=== PATIENT | female | born 1995 | race African-American/Black ===

== ENCOUNTER 2017-11-07 15:17 | Emergency (ER) | payer SELFPAY ==
[~2017-11-07] VITALS: Ht 149.9 cm; Wt 104.1 kg
[~2017-11-07 15:17] MED LIST: Z.0.NO CURRENT MEDS
[2017-11-07 15:27] VITALS: BP 141/91; PULSE 110; RESP 16; TEMP 99.6; O2SAT 99
[2017-11-07 17:47] LABS: AUTOMATED NEUTROPHIL # 7.4 TH/MM3 (1.8-7.7); BASOPHIL % 0.3 % (0.0-2.0); EOSINOPHIL # 0.1 TH/MM3 (0-0.4); EOSINOPHIL % 1.1 % (0.0-4.0); HEMOGLOBIN 10.5 GM/DL (11.6-15.3); LYMPH % 21.8 % (9.0-44.0); LYMPHOCYTE # 2.2 TH/MM3 (1.0-4.8); MEAN CORPUSCULAR HEMOGLOBIN 22.5 PG (27.0-34.0); MEAN CORPUSCULAR HGB CONC 30.8 % (32.0-36.0); MEAN PLATELET VOLUME 8.2 FL (7.0-11.0); MONO % 3.8 % (0.0-8.0); MONOCYTE # 0.4 TH/MM3 (0-0.9); PLATELET COUNT 484 TH/MM3 (150-450); RED BLOOD COUNT 4.66 MIL/MM3 (4.00-5.30); RED CELL DISTRIBUTION WIDTH 20.3 % (11.6-17.2); WHITE BLOOD COUNT 10.1 TH/MM3 (4.0-11.0)
[2017-11-07 18:07] LABS: ALBUMIN 3.8 GM/DL (3.4-5.0); ALT (GPT) 17 U/L (9-42); AST (GOT) 15 U/L (16-38); BICARBONATE 27.8 MEQ/L (21.0-32.0); BLOOD UREA NITROGEN 6 MG/DL (7-18); CALCIUM 8.8 MG/DL (8.5-10.1); CHLORIDE 105 MEQ/L (98-107); CREATININE 0.69 MG/DL (0.50-1.00); GLOMERULAR FILTRATION RATE 131 ML/MIN (>89); GLUCOSE,RANDOM 77 MG/DL (74-106); SODIUM (NA) 141 MEQ/L (136-145)
[2017-11-07 18:12] LABS: ALKALINE PHOSPHATASE 92 U/L (45-117); TOTAL BILIRUBIN ADULT 0.2 MG/DL (0.2-1.0); TOTAL PROTEIN 8.6 GM/DL (6.4-8.2)
--- NOTE | 2017-11-07 18:26 | PD ---
HPI Chief Complaint: Psychiatric Symptoms Time Seen by Provider: 18:06 Travel History International Travel<30 days: No Contact w/Intl Traveler<30days: No Traveled to known affect area: No History of Present Illness HPI 22-year-old female presents to the emergency department under Horta act by her primary care provider. According to the Horta act report the patient has "suicidal plan for today" and states "new patient brought to my office by her mother. "After leaving her office I am going home to commit suicide by ingestion." On my examination the patient states that she has been thinking about suicide for the past few months. She has history of suicidal attempt a few years ago by taking a handful of her mother's painkillers. She states she ordered a bottle of Tylenol online and had a plan to take it when it arrived. It arrived a month ago and has been sitting in her room. Her mom is aware of the bottle of pills and the patient said she was going to give him to her mother , but her room is a mass and she cannot find them. She also lives with her sister. Denies homicidal ideations. Denies illicit drug use, alcohol use, tobacco use. Denies auditory visual hallucinations. Denies psychiatric history. Says her symptoms are aggravated by feeling depressed about life and not having anyone around and not having any friends. No known relieving factors. Symptoms are moderate to severe in severity. Duration chronic. Unknown onset. Says she has been having dysuria and nausea for the past few weeks. Otherwise denies fever, vomiting, abdominal pain, chest pain, shortness of breath, change in stool. Currently on her menses. Primary care provider is Dr. Pavon. Denies significant past medical history. No known allergies. Has no other medical complaints. No other modifying factors or associated signs and symptoms. PFSH Past Medical History Developmental Delay: No Diminished Hearing: No Immunizations Current: Yes Social History Alcohol Use: No Tobacco Use: No Substance Use: No Allergies-Medications (Allergen,Severity, Reaction): Coded Allergies: No Known Allergies (Verified Adverse Reaction, Unknown, 11/07/17) Reported Meds & Prescriptions Reported Meds & Active Scripts Active Review of Systems Except as stated in HPI: all other systems reviewed are Neg Physical Exam Narrative GENERAL: Well-nourished, well-developed black female patient, in no acute distress SKIN: Warm and dry. HEAD: Atraumatic. Normocephalic. EYES: Pupils equal and round. ENT: Mucosa pink and moist. NECK: Supple. Trachea midline. CARDIOVASCULAR: Regular rate and rhythm. No murmur appreciated. RESPIRATORY: No accessory muscle use. Clear to auscultation. Breath sounds equal bilaterally. GASTROINTESTINAL: Abdomen soft, non-tender, nondistended. Hepatic and splenic margins not palpable. Bowel sounds are active 4 quadrants. MUSCULOSKELETAL: No obvious deformities. No clubbing. No cyanosis. No edema. BACK: No CVA tenderness. NEUROLOGICAL: Awake and alert. Oriented 3. No obvious cranial nerve deficits. Motor grossly within normal limits. Normal speech. Moves all extremities. 5/5 strength to all extremities. PSYCHIATRIC: No delusional thought processes. No hallucinations. Data Data Last Documented VS Vital Signs Date Time Temp Pulse Resp B/P (MAP) Pulse Ox O2 Delivery O2 Flow Rate FiO2 11/07/17 15:27 99.6 110 16 141/91 (108) 99 Orders Orders Complete Blood Count With Diff (11/07/17 16:42) Comprehensive Metabolic Panel (11/07/17 16:42) Psych Screen (11/07/17 16:42) Drug Screen, Random Urine (11/07/17 16:42) Thyroid Stimulating Hormone (11/07/17 18:07) Urinalysis - C+S If Indicated (11/07/17 18:07) Ed Urine Pregnancytest Poc (11/07/17 18:07) Alcohol (Ethanol) (11/07/17 18:07) Salicylates (Aspirin) (11/07/17 18:07) Tylenol (Acetaminophen) (11/07/17 18:07) Labs Laboratory Tests Test 11/07/17 15:36 White Blood Count 10.1 TH/MM3 Red Blood Count 4.66 MIL/MM3 Hemoglobin 10.5 GM/DL Hematocrit 34.0 % Mean Corpuscular Volume 73.0 FL Mean Corpuscular Hemoglobin 22.5 PG Mean Corpuscular Hemoglobin Concent 30.8 % Red Cell Distribution Width 20.3 % Platelet Count 484 TH/MM3 Mean Platelet Volume 8.2 FL Neutrophils (%) (Auto) 73.0 % Lymphocytes (%) (Auto) 21.8 % Monocytes (%) (Auto) 3.8 % Eosinophils (%) (Auto) 1.1 % Basophils (%) (Auto) 0.3 % Neutrophils # (Auto) 7.4 TH/MM3 Lymphocytes # (Auto) 2.2 TH/MM3 Monocytes # (Auto) 0.4 TH/MM3 Eosinophils # (Auto) 0.1 TH/MM3 Basophils # (Auto) 0.0 TH/MM3 CBC Comment DIFF FINAL Differential Comment Blood Urea Nitrogen 6 MG/DL Creatinine 0.69 MG/DL Random Glucose 77 MG/DL Total Protein 8.6 GM/DL Albumin 3.8 GM/DL Calcium Level 8.8 MG/DL Alkaline Phosphatase 92 U/L Aspartate Amino Transf (AST/SGOT) 15 U/L Alanine Aminotransferase (ALT/SGPT) 17 U/L Total Bilirubin 0.2 MG/DL Sodium Level 141 MEQ/L Potassium Level 3.8 MEQ/L Chloride Level 105 MEQ/L Carbon Dioxide Level 27.8 MEQ/L Anion Gap 8 MEQ/L Estimat Glomerular Filtration Rate 131 ML/MIN Urine Opiates Screen NEG Urine Barbiturates Screen NEG Urine Amphetamines Screen NEG Urine Benzodiazepines Screen NEG Urine Cocaine Screen NEG Urine Cannabinoids Screen NEG MDM Medical Decision Making Medical Screen Exam Complete: Yes Emergency Medical Condition: Yes Medical Record Reviewed: Yes Differential Diagnosis Suicidal ideation, suicidal threat, depression, medical clearance for psychological evaluation Narrative Course Patient presents under a Horta act. Physical examination and vital signs are essentially unremarkable. Patient has no medical complaints to report. Psych screen has been ordered. If the laboratory results are unremarkable, the patient will be medically cleared for psychiatric evaluation and disposition. Diagnosis Primary Impression: Medical clearance for psychiatric admission Scripts No Active Prescriptions or Reported Meds Condition: Stable Kala Fuchs November 07, 2017 18:26
[2017-11-07 19:52] LABS: BILIRUBIN, URINE NEG (NEG); BLOOD, URINE MOD (NEG); GLUCOSE,URINE NEG (NEG); KETONE, URINE TRACE mg/dL (NEG); MUCUS URINE MANY /lpf (OCC); NITRITE,URINE NEG (NEG); SQUAMOUS EPITHELIAL CELL URINE 6 /hpf (0-5); URINE COLOR YELLOW (YELLW/STRAW); URINE LEUKOCYTE ESTERASE TRACE (NEG)
--- NOTE | 2017-11-07 20:19 | PD ---
Physical Exam Date Seen by Provider: November 07, 2017 Time Seen by Provider: 20:17 Data Data Last Documented VS Vital Signs Date Time Temp Pulse Resp B/P (MAP) Pulse Ox O2 Delivery O2 Flow Rate FiO2 11/07/17 15:27 99.6 110 16 141/91 (108) 99 Orders Orders Complete Blood Count With Diff (11/07/17 16:42) Comprehensive Metabolic Panel (11/07/17 16:42) Psych Screen (11/07/17 16:42) Drug Screen, Random Urine (11/07/17 16:42) Thyroid Stimulating Hormone (11/07/17 18:07) Urinalysis - C+S If Indicated (11/07/17 18:07) Ed Urine Pregnancytest Poc (11/07/17 18:07) Alcohol (Ethanol) (11/07/17 18:07) Salicylates (Aspirin) (11/07/17 18:07) Tylenol (Acetaminophen) (11/07/17 18:07) Urine Culture (11/07/17 19:17) Labs Laboratory Tests Test 11/07/17 15:36 11/07/17 19:17 White Blood Count 10.1 TH/MM3 Red Blood Count 4.66 MIL/MM3 Hemoglobin 10.5 GM/DL Hematocrit 34.0 % Mean Corpuscular Volume 73.0 FL Mean Corpuscular Hemoglobin 22.5 PG Mean Corpuscular Hemoglobin Concent 30.8 % Red Cell Distribution Width 20.3 % Platelet Count 484 TH/MM3 Mean Platelet Volume 8.2 FL Neutrophils (%) (Auto) 73.0 % Lymphocytes (%) (Auto) 21.8 % Monocytes (%) (Auto) 3.8 % Eosinophils (%) (Auto) 1.1 % Basophils (%) (Auto) 0.3 % Neutrophils # (Auto) 7.4 TH/MM3 Lymphocytes # (Auto) 2.2 TH/MM3 Monocytes # (Auto) 0.4 TH/MM3 Eosinophils # (Auto) 0.1 TH/MM3 Basophils # (Auto) 0.0 TH/MM3 CBC Comment DIFF FINAL Differential Comment Blood Urea Nitrogen 6 MG/DL Creatinine 0.69 MG/DL Random Glucose 77 MG/DL Total Protein 8.6 GM/DL Albumin 3.8 GM/DL Calcium Level 8.8 MG/DL Alkaline Phosphatase 92 U/L Aspartate Amino Transf (AST/SGOT) 15 U/L Alanine Aminotransferase (ALT/SGPT) 17 U/L Total Bilirubin 0.2 MG/DL Sodium Level 141 MEQ/L Potassium Level 3.8 MEQ/L Chloride Level 105 MEQ/L Carbon Dioxide Level 27.8 MEQ/L Anion Gap 8 MEQ/L Estimat Glomerular Filtration Rate 131 ML/MIN Urine Opiates Screen NEG Urine Barbiturates Screen NEG Urine Amphetamines Screen NEG Urine Benzodiazepines Screen NEG Urine Cocaine Screen NEG Urine Cannabinoids Screen NEG Urine Color YELLOW Urine Turbidity CLEAR Urine pH 6.0 Urine Specific [place] 1.033 Urine Protein 30 mg/dL Urine Glucose (UA) NEG mg/dL Urine Ketones TRACE mg/dL Urine Occult Blood MOD Urine Nitrite NEG Urine Bilirubin NEG Urine Urobilinogen LESS THAN 2.0 MG/DL Urine Leukocyte Esterase TRACE Urine RBC /hpf Urine WBC 91 /hpf Urine Squamous Epithelial Cells 6 /hpf Urine Mucus MANY /lpf Microscopic Urinalysis Comment CULTURE INDICATED MDM Medical Record Reviewed: Yes Supervised Visit with NAV: No Interpretation(s) Laboratory Tests Test 11/07/17 15:36 11/07/17 19:17 White Blood Count 10.1 TH/MM3 Red Blood Count 4.66 MIL/MM3 Hemoglobin 10.5 GM/DL Hematocrit 34.0 % Mean Corpuscular Volume 73.0 FL Mean Corpuscular Hemoglobin 22.5 PG Mean Corpuscular Hemoglobin Concent 30.8 % Red Cell Distribution Width 20.3 % Platelet Count 484 TH/MM3 Mean Platelet Volume 8.2 FL Neutrophils (%) (Auto) 73.0 % Lymphocytes (%) (Auto) 21.8 % Monocytes (%) (Auto) 3.8 % Eosinophils (%) (Auto) 1.1 % Basophils (%) (Auto) 0.3 % Neutrophils # (Auto) 7.4 TH/MM3 Lymphocytes # (Auto) 2.2 TH/MM3 Monocytes # (Auto) 0.4 TH/MM3 Eosinophils # (Auto) 0.1 TH/MM3 Basophils # (Auto) 0.0 TH/MM3 CBC Comment DIFF FINAL Differential Comment Blood Urea Nitrogen 6 MG/DL Creatinine 0.69 MG/DL Random Glucose 77 MG/DL Total Protein 8.6 GM/DL Albumin 3.8 GM/DL Calcium Level 8.8 MG/DL Alkaline Phosphatase 92 U/L Aspartate Amino Transf (AST/SGOT) 15 U/L Alanine Aminotransferase (ALT/SGPT) 17 U/L Total Bilirubin 0.2 MG/DL Sodium Level 141 MEQ/L Potassium Level 3.8 MEQ/L Chloride Level 105 MEQ/L Carbon Dioxide Level 27.8 MEQ/L Anion Gap 8 MEQ/L Estimat Glomerular Filtration Rate 131 ML/MIN Urine Opiates Screen NEG Urine Barbiturates Screen NEG Urine Amphetamines Screen NEG Urine Benzodiazepines Screen NEG Urine Cocaine Screen NEG Urine Cannabinoids Screen NEG Urine Color YELLOW Urine Turbidity CLEAR Urine pH 6.0 Urine Specific [place] 1.033 Urine Protein 30 mg/dL Urine Glucose (UA) NEG mg/dL Urine Ketones TRACE mg/dL Urine Occult Blood MOD Urine Nitrite NEG Urine Bilirubin NEG Urine Urobilinogen LESS THAN 2.0 MG/DL Urine Leukocyte Esterase TRACE Urine RBC /hpf Urine WBC 91 /hpf Urine Squamous Epithelial Cells 6 /hpf Urine Mucus MANY /lpf Microscopic Urinalysis Comment CULTURE INDICATED Differential Diagnosis . Narrative Course The patient's laboratory tests have been reviewed. She does have innumerable red blood cells and 91 WBCs in her urine but no obvious bacteria. She will be treated per her culture. The patient has been medically cleared for psychiatric admission. Diagnosis Primary Impression: Medical clearance for psychiatric admission Scripts No Active Prescriptions or Reported Meds Condition: Dae Mak November 07, 2017 20:19
[2017-11-08 00:05] VITALS: BP 109/51; PULSE 87; RESP 19; O2SAT 100
[2017-11-08 01:51] LABS: ACETAMINOPHEN LESS THAN 2.0 MCG/ML (10.0-30.0)
[2017-11-08 06:35] VITALS: BP 128/63; PULSE 84; RESP 17; O2SAT 99
--- NOTE | 2017-11-08 12:06 | PD ---
Physical Exam Date Seen by Provider: November 08, 2017 Time Seen by Provider: 12:55 Data Data Last Documented VS Vital Signs Date Time Temp Pulse Resp B/P (MAP) Pulse Ox O2 Delivery O2 Flow Rate FiO2 11/08/17 06:35 84 17 128/63 (84) 99 Room Air 11/07/17 15:27 99.6 Orders Orders Complete Blood Count With Diff (11/07/17 16:42) Comprehensive Metabolic Panel (11/07/17 16:42) Psych Screen (11/07/17 16:42) Drug Screen, Random Urine (11/07/17 16:42) Thyroid Stimulating Hormone (11/07/17 18:07) Urinalysis - C+S If Indicated (11/07/17 18:07) Ed Urine Pregnancytest Poc (11/07/17 18:07) Alcohol (Ethanol) (11/07/17 18:07) Salicylates (Aspirin) (11/07/17 18:07) Tylenol (Acetaminophen) (11/07/17 18:07) Urine Culture (11/07/17 19:17) Diet Regular Basic (11/08/17 Breakfast) Diet Regular Basic (11/08/17 Lunch) Ed Discharge Order (11/08/17 12:06) Labs Laboratory Tests Test 11/07/17 15:36 11/07/17 19:17 White Blood Count 10.1 TH/MM3 Red Blood Count 4.66 MIL/MM3 Hemoglobin 10.5 GM/DL Hematocrit 34.0 % Mean Corpuscular Volume 73.0 FL Mean Corpuscular Hemoglobin 22.5 PG Mean Corpuscular Hemoglobin Concent 30.8 % Red Cell Distribution Width 20.3 % Platelet Count 484 TH/MM3 Mean Platelet Volume 8.2 FL Neutrophils (%) (Auto) 73.0 % Lymphocytes (%) (Auto) 21.8 % Monocytes (%) (Auto) 3.8 % Eosinophils (%) (Auto) 1.1 % Basophils (%) (Auto) 0.3 % Neutrophils # (Auto) 7.4 TH/MM3 Lymphocytes # (Auto) 2.2 TH/MM3 Monocytes # (Auto) 0.4 TH/MM3 Eosinophils # (Auto) 0.1 TH/MM3 Basophils # (Auto) 0.0 TH/MM3 CBC Comment DIFF FINAL Differential Comment Blood Urea Nitrogen 6 MG/DL Creatinine 0.69 MG/DL Random Glucose 77 MG/DL Total Protein 8.6 GM/DL Albumin 3.8 GM/DL Calcium Level 8.8 MG/DL Alkaline Phosphatase 92 U/L Aspartate Amino Transf (AST/SGOT) 15 U/L Alanine Aminotransferase (ALT/SGPT) 17 U/L Total Bilirubin 0.2 MG/DL Sodium Level 141 MEQ/L Potassium Level 3.8 MEQ/L Chloride Level 105 MEQ/L Carbon Dioxide Level 27.8 MEQ/L Anion Gap 8 MEQ/L Estimat Glomerular Filtration Rate 131 ML/MIN Thyroid Stimulating Hormone 3rd Gen 0.566 uIU/ML Salicylates Level LESS THAN 1.7 MG/DL Urine Opiates Screen NEG Acetaminophen Level LESS THAN 2.0 MCG/ML Urine Barbiturates Screen NEG Urine Amphetamines Screen NEG Urine Benzodiazepines Screen NEG Urine Cocaine Screen NEG Urine Cannabinoids Screen NEG Ethyl Alcohol Level LESS THAN 3 MG/DL Urine Color YELLOW Urine Turbidity CLEAR Urine pH 6.0 Urine Specific [place] 1.033 Urine Protein 30 mg/dL Urine Glucose (UA) NEG mg/dL Urine Ketones TRACE mg/dL Urine Occult Blood MOD Urine Nitrite NEG Urine Bilirubin NEG Urine Urobilinogen LESS THAN 2.0 MG/DL Urine Leukocyte Esterase TRACE Urine RBC /hpf Urine WBC 91 /hpf Urine Squamous Epithelial Cells 6 /hpf Urine Mucus MANY /lpf Microscopic Urinalysis Comment CULTURE INDICATED MDM Supervised Visit with NAV: No Narrative Course 22-year-old female brought in under [place] act for psychiatric evaluation. She was seen by MARGUERITE Dhillon and handed off to CHARLEE Wood for medical clearance. Medical workup revealed a UA. Patient was medically cleared. Patient was then evaluated by the psych screener. BA was lifted and the patient was and determined safe for transfer to [facility]. Arrangements were made for transfer. Patient is prescribed Bactrim DS twice daily 3 days. She is instructed to follow-up with the primary care. Patient is stable and transferred to [facility]. Diagnosis Primary Impression: Medical clearance for psychiatric admission Additional Impression: UTI (urinary tract infection) Qualified Codes: N39.0 - Urinary tract infection, site not specified Additional Instruction: Rest, hydrate. Take antibiotics as prescribed until every pill is gone. Follow-up with your primary care provider. Return to the ED for any urgent or emergent medical condition. Med/Other Pt SpecificInfo: Prescription(s) given Scripts Sulfamethoxazole-Trimethoprim (Bactrim DS) 800-160 Mg Tab 1 TAB PO BID for Infection, #6 TAB 0 Refills Prov: Von Rothman MD 11/08/17 Disposition: 65 DISC TO [facility] Condition: Stable Yary Meyers November 08, 2017 12:06
[2017-11-08] MEDS ORDERED: BACT800T5 PO (12:52)
== END 2017-11-08 13:20 ==
LOC: NEDAMB 15:17 → NEPJ 11-08 13:20
DX: N39.0 Urinary tract infection, site not specified (principal); R11.0 Nausea
CPT/HCPCS: 80053; 80307; 81001; 84443; 84703; 85025; 87086; 99285